=== PATIENT | female | born 1955 | race Caucasian/White ===

== ENCOUNTER 2021-06-26 08:03 | Day surgery (SDCO) | payer OTHER ==
[~2021-06-26] VITALS: Ht 157.5 cm; Wt 73.0 kg
[~2021-06-26 08:03] MED LIST: ESTRACE1 MG PO; ESTRING1 EACH VG; FLEXERIL5 MG PO; NITROQUIK SL0.4 MG SL; PANTOPRAZOLE SO40 MG PO; PROVERA10 MG PO; PROZAC20 MG PO; VALSARTAN80 MG PO
[2021-06-26 08:53] LABS: HCT 42.8 % (37.0-47.0); HGB 14.1 g/dl (12.5-16.0); MCH 29.8 pg (25.0-31.0); MCHC 32.9 g/dL (32.0-36.0); MCV 90.5 fL (78.0-100.0); MPV 9.7 fL (6.0-9.5); RBC 4.73 M/uL (4.20-5.40); WBC 6.5 K/uL (4.0-10.5)
[2021-06-26 09:17] LABS: BUN/CREAT RATIO (CALC) 22.2 RATIO; CREATININE 0.72 mg/dL (0.51-0.95)
[2021-06-26] MEDS ORDERED: PERCOCET 5-3251 EACH PO (15:28)
[2021-06-26] MEDS ORDERED: COLACE100 MG PO (15:28)
[2021-06-27 05:06] LABS: BASOPHIL 0.1 % (0-2); EOSINOPHIL 0.2 % (0-7); HCT 39.3 % (37.0-47.0); HGB 12.6 g/dl (12.5-16.0); LYMPHOCYTE 21.3 % (15-48); MCHC 32.1 g/dL (32.0-36.0); MCV 93.6 fL (78.0-100.0); MONOCYTE 5.8 % (0-12); MPV 9.9 fL (6.0-9.5); NEUTROPHIL 72.2 % (41-80); NRBC 0; PLT 240 K/uL (150-400); RDW 13.2 % (11.5-14.0); WBC 8.5 K/uL (4.0-10.5)
== END 2021-06-27 11:05 | disposition home or self-care (01) ==
LOC: FAS 08:03 → FTCU 15:52
PROVIDERS: ADMIT Obstetrics & Gynecology
DX: N87.9 Dysplasia of cervix uteri, unspecified (principal); N83.291 Other ovarian cyst, right side; M85.80 Other specified disorders of bone density and structure, unspecified site; N95.2 Postmenopausal atrophic vaginitis; Z94.7 Corneal transplant status; E05.90 Thyrotoxicosis, unspecified without thyrotoxic crisis or storm; I10 Essential (primary) hypertension; R07.89 Other chest pain
CPT/HCPCS: 36415; 80048; 85025; 86850; 86900; 86901; G0378; J0690; J1100; J1170; J1885; J2250; J2405; J2704; J3010; J7120; J7121